=== PATIENT | male | born 1955 | race Caucasian/White ===

== ENCOUNTER 2021-02-24 08:07 | Emergency (ER) | payer MEDICARE, SELFPAY ==
[2021-02-24 08:18] VITALS: BP 154/84; PULSE 83; RESP 13; TEMP 36.8; O2SAT 98; BMI 24.3
[2021-02-24 08:52] VITALS: BP 146/81; PULSE 83; RESP 16; O2SAT 98
--- NOTE | 2021-02-24 09:18 | CTR_ITS ---
PROCEDURE INFORMATION: Exam: CT Head Without Contrast Exam date and time: 02/24/2021 9:18 AM Age: 65 years old Clinical indication: Dizziness; Additional info: Vertigo, nausea, vomiting, TECHNIQUE: Imaging protocol: Computed tomography of the head without contrast. Radiation optimization: All CT scans at this facility use at least one of these dose optimization techniques: automated exposure control; mA and/or kV adjustment per patient size (includes targeted exams where dose is matched to clinical indication); or iterative reconstruction. COMPARISON: No relevant prior studies available. RADIATION DOSE METRICS: Total DLP (mGy-cm): 917.2 FINDINGS: Brain: There is an old infarct in the right cerebellar hemisphere. No intracranial hemorrhage, edema or other acute abnormalities are seen in the brain. There is no mass effect or midline shift. Cerebral ventricles: No ventriculomegaly. Paranasal sinuses: Visualized sinuses are unremarkable. No fluid levels. Mastoid air cells: Visualized mastoid air cells are well aerated. Bones/joints: Unremarkable. No acute fracture. Soft tissues: Unremarkable. CT/CT head wo con* [id number] IMPRESSION: 1. No acute intracranial abnormality. 2. Old right cerebellar infarct.
[2021-02-24 09:44] LABS: Basophils % 0.1 %; Eosinophils % 0.1 %; Hematocrit 51.3 % (42.0-52.0); Hemoglobin 17.3 g/dL (11.7-16.6); Lymphocytes # 1.6 10^3/uL (0.8-4.8); Lymphocytes % 10.6 %; Mean Corpuscular HGB Conc 33.7 g/dL (30.0-36.0); Mean Corpuscular Hemoglobin 29.1 pg (28.0-34.0); Mean Corpuscular Volume 86.4 fl (80-94); Mean Platelet Volume 10.3 fL (7.4-10.4); Monocytes % 6.3 %; Neutrophils # 12.64 10^3/uL (1.8-7.7); Neutrophils % 82.5 %; Nucleated Red Blood Cells % 0 %; Platelet Count 288 10^3/cmm (130-400); Red Blood Count 5.94 10^6/uL (4.1-5.3); Red Cell Distribution Width 12.1 % (12.1-15.1); White Blood Count 15.3 10^3/uL (4.0-10.0)
[2021-02-24] MEDS: sodium chloride 0.9% 1,000 ML 999 ML IV (09:44)
[2021-02-24] MEDS: ondansetron 2 mg/ML SDV 2 mL 4 MG IVP (09:44)
[2021-02-24 09:53] LABS: Alanine Aminotransferase 122 U/L (0-41); Albumin Level 4.1 g/dL (3.5-5.2); Alkaline Phosphatase 38 IU/L (40-130); Anion Gap 19.3 (5-19); Aspartate Amino Transferase 45 U/L (0-40); Blood Urea Nitrogen 17 mg/dL (8-23); C Reactive Protein 0.4 mg/L (0.0-4.9); Calcium 9.6 mg/dL (8.5-10.5); Carbon Dioxide 25 mmol/L (22-29); Chloride 93 mmol/L (98-107); Globulin 3.7 g/dL (1.3-4.6); Glomerular Filtration Rate 84.7 mL/min (90-130); Glucose 108 mg/dL (65-115); Osmolality Calculated 278 mOsm/kg (285-295); Potassium 4.3 mmol/L (3.5-5.1); Sodium 133 mmol/L (136-145); Total Protein 7.8 g/dL (6.6-8.7)
--- NOTE | 2021-02-24 10:00 | ED_ITS ---
HPI - Nausea/Vomiting/Diarrhea General: Chief complaint: Nausea/Vomiting/Diarrhea Stated complaint: N/V Blurry Vision/ being treated for bells palsey Time Seen by Provider: 02/24/21 08:40 Source: patient Mode of arrival: ambulatory Limitations: no limitations History of Present Illness: HPI Narrative: 65-year-old male complaining of nausea and vomiting for the past 2 days. 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 He also has persistent dizziness and nausea on standing, left ear fullness. His left facial droop is improving. He has a history of hypertension, denies history of stroke. All of the symptoms started about 3 weeks ago, initially with a headache, followed by left facial droop, left ear and facial swelling with vesicular rash. Prior to that he denies any dizziness, vertigo, chronic headaches, nausea or vomiting. Associated nausea: Yes Associated symtoms: Reports dizziness, headache(s) and nausea; Denies change in vision, fatigue or malaise Review of Systems General: Reports: 10 or more systems reviewed and unremarkable except in HPI and below Const: Denies: fever(s), chills, body aches, change in appetite, fatigue or malaise Eyes: Reports: dry eyes; Denies: change in vision, blurry vision, photophobia, eye discharge or eye redness ENMT: Reports: ear or mastoid pain and disequilibrium; Denies: odynophagia, oral sores or nasal congestion Resp: Denies: dyspnea or productive cough GI: Reports: nausea and vomiting Musc: Denies: neck pain or back pain Skin/Breast: Reports: rash and erythema (Left ear canal) Neuro: Reports: headache(s), dizziness and vertigo; Denies: numbness in extremities, weakness in extremities, lack of coordination, difficulty walking, confusion or Slurred speech present Endo: Denies: polyuria or polydipsia Dewey/Lymph: Denies: easy bruising or easy bleeding Physical Exam Const: COMMON NORMALS: no acute distress and alert GENERAL APPEARANCE: cooperative, comfortable and well kempt ORIENTATION/CONSCIOUSNESS: Yes oriented to person and Yes oriented to place HENMT: COMMON NORMALS: normocephalic and atraumatic HEAD & SCALP: normocephalic and atraumatic EXTERNAL AUDITORY CANAL: Abnormal EAC present EAC laterality: left (Healing vesicular rash) Details: erythema TYMPANIC MEMBRANE: TM abnormal TM laterality: left Details: dull, loss of landmarks, retracted and scarred Eye: COMMON NORMALS: Equal, round and reactive pupils present, EOMs intact bilaterally, conjunctivae normal and no scleral icterus ALIGNMENT: Yes alignment normal CONJUNCTIVA: Yes conjunctivae normal PUPIL: Yes Equal, round and reactive pupils present EOM: Yes Nystagmus present Nystagmus Noted: positive horizontal and positive with left lateral gaze Neck/C-Spine: GENERAL: Yes normal visual inspection and Yes trachea midline Lymph: LYMPHATIC: no lymphadenopathy noted Resp: COMMON NORMALS: normal respiratory effort and No retractions Cardio: COMMON NORMALS: regular rate, regular rhythm, S1 normal heart sound present and S2 normal heart sound present RATE: regular rate RHYTHM: regular rhythm HEART SOUNDS: S1 normal heart sound present and S2 normal heart sound present GI: COMMON NORMALS: Normal to inspection, nondistended, normoactive bowel sounds present, Soft to palpation and non-tender INSPECTION: Yes normal to inspection and No abdominal distension PALPATION: Yes Soft to palpation Extremity: COMMON NORMALS: normal to inspection, full ROM and capillary refill normal Neuro: SENSORIUM/ORIENTATION: Yes alert, Yes oriented to person and Yes oriented to place CRANIAL NERVES: Yes CN normal except as noted and Yes CN VII (facial) Laterality: left (Mild) CN VII left: facial droop, flattened naso- labial fold, unable to raise eyebrow(s) and asymmetrical smile SPEECH: speech normal GAIT: Yes Normal gait present Psych: APPEARANCE: Yes well kempt Course Vital Signs: Vital signs: Vital Signs Temperature 98.2 F 02/24/21 08:18 Pulse Rate 88 02/24/21 12:06 Respiratory Rate 16 02/24/21 10:54 Blood Pressure 156/94 02/24/21 10:54 Pulse Oximetry 99 02/24/21 12:06 MDM - Nausea/Vomiting/Diarrhea MDM Narrative: Medical decision making narrative: 65-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 Facial droop is improving, but he still having trouble with vertigo. Treated with IV fluids, Zofran; able to tolerate p.o. challenge. CT head did not show any acute abnormality. There is evidence of an old right cerebellar stroke, which the patient was not aware of. Emphasized the importance of follow-up with his PCP for further work-up for this. Recommended that he take a Zofran at least 30 minutes prior to the Valtrex, preferably with a full glass of water and a small meal. If he still unable to tolerate it, he should discontinue. He does have mild elevation in LFTs which could be due to the Valtrex or dehydration, and these will need to be rechecked Lab Data: Labs: Lab Results 02/24/21 02/24/21 09:24 09:24 WBC 15.3 10^3/uL H 10 ^3/uL (4.0-10.0) RBC 5.94 10^6/uL H 10 ^6/uL (4.1-5.3) Hgb 17.3 g/dL H g/dL (11.7-16.6) Hct 51.3 % % (42.0-52.0) MCV 86.4 fl fl (80-94) MCH 29.1 pg pg (28.0-34.0) MCHC 33.7 g/dL g/dL (30.0-36.0) RDW 12.1 % % (12.1-15.1) Plt Count 288 10^3/cmm 10^3 /cmm (130-400) MPV 10.3 fL fL (7.4-10.4) Neut % (Auto) 82.5 % % Lymph % (Auto) 10.6 % % [place] % (Auto) 6.3 % % Eos % (Auto) 0.1 % % Baso % (Auto) 0.1 % % Neut # (Auto) 12.64 10^3/uL H 1 0^3/uL (1.8-7.7) Lymph # (Auto) 1.6 10^3/uL 10^3/ uL (0.8-4.8) [place] # (Auto) 1.0 10^3/uL H 10^ 3/uL (0.2-0.9) Eos # (Auto) 0.0 10^3/uL 10^3/ uL (0.0-0.8) Baso # (Auto) 0.0 10^3/uL 10^3/ uL (0.0-0.1) Nucleated RBC % (a uto) 0 % % Nucleated RBCs # 0.0 /100WBC /100W BC Sodium 133 mmol/L L mmol /L (136-145) Potassium 4.3 mmol/L mmol/L (3.5-5.1) Chloride 93 mmol/L L mmol/ L (98-107) Carbon Dioxide 25 mmol/L mmol/L (22-29) Anion Gap 19.3 H (5-19) BUN 17 mg/dL mg/dL (8-23) Creatinine 0.9 mg/dL mg/dL (0.7-1.2) GFR Calculation 84.7 mL/min L mL/ min (90-130) Glucose 108 mg/dL mg/dL (65-115) Calculated Osmolal ity 278 mOsm/kg L mOs m/kg (285-295) Calcium 9.6 mg/dL mg/dL (8.5-10.5) Total Bilirubin 2.0 mg/dL H mg/dL (0.15-1.2) AST 45 U/L H U/L (0-40) ALT 122 U/L H U/L (0-41) Alkaline Phosphata se 38 IU/L L IU/L (40-130) C-Reactive Protein 0.4 mg/L mg/L (0.0-4.9) Total Protein 7.8 g/dL g/dL (6.6-8.7) Albumin 4.1 g/dL g/dL (3.5-5.2) Globulin 3.7 g/dL g/dL (1.3-4.6) Discharge Plan Discharge Patient Disposition: Home Clinical Impression: Drug-induced nausea and vomiting, Dehydration, Sheryl Hawkins syndrome (geniculate herpes zoster), Vertigo Condition: Stable Prescriptions: New meclizine 25 mg tablet 25 mg PO TID PRN (Reason: dizziness, nausea) Qty: 30 RF: 0 ondansetron 8 mg tablet,disintegrating 8 mg PO Q12H PRN (Reason: nausea and vomiting) 5 Days Qty: 30 RF: 0 Discharge Orders: Discharge ED (Routine); Ordered 02/24/21 Ordered By: Trish Cordero Discharge Diet: Advance as tolerated Discharge Activity: Resume usual activity Patient Instructions: Cifuentes Palsy (ED) Activity Restrictions/Additional Instructions: Try taking the nausea medicine at least 30 minutes before taking your other medication. Make sure to drink a full glass of water with the valacyclovir. If you still have nausea and vomiting, discontinue the valacyclovir. Call to schedule follow-up appoint with your primary care doctor in the next 3 days for recheck. Return immediately to the ER if develop worsening weakness or dizziness,, vision changes, severe headache, fever, or any other concerning symptoms. Coding Level of Care Code ED Online Trader for Deborah Berrios Exam Comprehensive
[2021-02-24 10:54] VITALS: BP 156/94; PULSE 80; RESP 16; O2SAT 99
[2021-02-24 12:06] VITALS: PULSE 88; O2SAT 99
== END 2021-02-24 12:07 | disposition home or self-care (01) ==
PROVIDERS: Emergency Provider Family Medicine
DX: R11.2 Nausea with vomiting, unspecified (principal); T37.5X5A Adverse effect of antiviral drugs, initial encounter; B02.21 Postherpetic geniculate ganglionitis; R42 Dizziness and giddiness
CPT/HCPCS: 70450; 80053; 85025; 86140; 96361; 96374; 99284; J2405; J7030

== ENCOUNTER → 2023-05-14 11:18 | Outpatient (BNVA) | payer MEDICARE, SELFPAY | PROVIDERS: PCP Family Medicine; Visit Provider Podiatrist Foot & Ankle Surgery | DX: S82.51XA Displaced fracture of medial malleolus of right tibia, initial encounter for closed fracture; W20.8XXA Other cause of strike by thrown, projected or falling object, initial encounter | CPT/HCPCS: 99204 ==

== ENCOUNTER 2023-05-20 06:37 | Day surgery (SDC) | payer MEDICARE, SELFPAY ==
[2023-05-20] VITALS (10 sets, daily range): BP systolic 103–157; BP diastolic 45–78; PULSE 53–69; RESP 9–20; TEMP 36.1–36.5; O2SAT 94–97; BMI 24.3
[2023-05-20] MEDS: gabapentin 300 mg Capsule PO (07:02)
[2023-05-20] MEDS: acetaminophen 1,000 MG/100 ML PIGGYBACK 400 MG IV (07:03)
[2023-05-20] MEDS: sodium chloride 0.9% 1,000 ML 30 ML IV (07:24)
--- NOTE | 2023-05-20 07:35 | ANES.PREANE2 ---
Pre-Anesthetic Assessment Height/Weight: Height 1.78 m Weight 77.111 kg Temp Pulse Resp BP Pulse Ox O2 Del Method 97.7 F 69 18 157/78 95 Room Air 05/20/23 06:56 05/20/23 06:56 05/20/23 06:56 05/20/23 06:56 05/20/23 06:56 05/20/23 07:06 Preop Diagnosis: Right medial malleolar fracture Operation Date: 05/20/23 08:20 Proposed Procedures p ORIF Ankle ORIF Distal Tibia(Right) - Sriram Pate DPM Familial anesthetic complications: None Was Beta Samson taken within 24 hours: N/A Was Clonidine taken within 24 hours: N/A Last intake: Intake Last Liquid Date 05/19/23 Last Liquid Time 17:00 Last Solid Date 05/19/23 Last Solid Time 19:00 Social No alcohol and No tobacco Exam alert, oriented x 3, clear to auscultation bilaterally and regular rate & rhythm Airway Mallampati: Class II Dentition: other (missing) CV/HEM Hypertension Anesthetic Plan ASA status: 2 Anesthesia: General and Regional (specify below) Risk of > 500 ml blood loss (7ml/kg in children): No Medications/Allergies Home Medications Medication Instructions Recorded Confirmed Last Taken Type amlodipine 5 mg tablet 5 mg PO DAILY 05/10/23 05/19/23 05/19/23 History losartan 50 mg tablet 50 mg PO DAILY 05/10/23 05/19/23 05/19/23 History Multi Vitamin 1 tab PO DAILY 05/19/23 05/19/23 05/19/23 History aspirin 81 mg chewable tablet 81 mg PO DAILY 05/19/23 05/19/23 05/19/23 History omega 5-osy-nrj-fish oil 1,000 mg 1 cap PO DAILY 05/19/23 05/19/23 05/19/23 History (120 mg-180 mg) capsule (Fish Oil) Allergies Allergy/AdvReac Type Severity Reaction Status Date / Time No Known Allergies Allergy Verified 05/19/23 14:56 Current Medications Generic Name Dose Route Start Last Admin Trade Name Freq PRN Reason Stop Dose Admin Sodium Chloride 1,000 mls @ 30 mls/hr 05/20/23 07:00 05/20/23 07:24 Sodium Chloride 0.9% IV 05/21/23 06:59 30 mls/hr .Q24H CHELI Administration Data Anesthesia Cardiac Studies: No Data to Display
--- NOTE | 2023-05-20 07:36 | ANES.PROC ---
Anesthesia Procedures Procedure/Date: 05/20/23 Nerve Block ^: Nerve Block 1: Main Anesthesia: general anesthesia Time Out Performed: Yes Consent: requested by attending/covering physician, from patient, from other, risks and benefits reviewed and patient agrees to proceed Nerve block location: popliteal (L) Anesthesia monitors applied: pulse oximetry, EKG, BP cuff and oxygen Nerve block position: supine Anesthetic Used: ropivicaine 0.5% (30 ml) and with decadron (4 mg) Ultrasound used to: recognize landmarks Nerve Stimulator Used?: No Interscalene/Femoral BLK: 4 stimuplex 21 g needle used for position and inplane approach, visualize local anesthetic spread and no vascular puncture identified Injection: neg aspiration of heme Patient Tolerated Procedure: well Complications: none
--- NOTE | 2023-05-20 08:23 | P.HPUD_ITS ---
Surgery/Procedure H&P Update DATE OF PROCEDURE: May 20, 2023 DATE H&P PERFORMED: 05/14/23 H&P UPDATE INFORMATION: I have reviewed H&P completed within last 30 days, I have examined patient prior to procedure, No changes to prior documentation and H&P is in [facility] [place] EMR on date indicated PREOP DIAGNOSIS: Right medial malleolar fracture PLANNED PROCEDURE: Operation Date: 05/20/23 08:20 Proposed Procedures p ORIF Ankle ORIF Distal Tibia(Right) - Sriram Pate DPM
[2023-05-20] MEDS: ceFAZolin 2,000 MG in sodium chloride 0.9% (plus) 50 ML 100 MG IV (08:39)
--- NOTE | 2023-05-20 09:05 | XR_ITS ---
WS: [id number] Exam: XR ankle RT 2V [id number] Date/Time of Exam: 05/20/2023 9:05 AM Reason For Exam: OR PIC, ORIF ANKLE Intraoperative AP and lateral C-arm images of the RIGHT ankle are submitted. Images depict internal fixation with 2 screws involving a medial malleolar fracture.
[2023-05-20] MEDS: BUPivacaine 0.5% INJ 10 mL INJECTION (09:22)
--- NOTE | 2023-05-20 09:31 | W.PM.BPON ---
Date of procedure: 05/20/2023 Surgeon name: Memo BarrigaPPaige Manager Architecture(s) name(s): Kristen Procedure(s) performed: Open reduction internal fixation right medial malleolus fracture Description of findings: Right medial malleolus fracture Estimated blood loss: 5 cc Tourniquet time: 26 minutes Specimen(s) removed: None Post-operative diagnosis: Medial malleolus fracture right ankle
--- NOTE | 2023-05-20 09:32 | P.OP_ITS ---
Operative Report Date of procedure: May 20, 2023 Pre-op diagnosis: Right medial malleolus fracture Post-op diagnosis: Same Procedure done: Open reduction internal fixation right medial malleolus fracture CPT 43988 Implants: 4.0 headless compression screws x 2 [employer] Surgeon: Sriram Ptae DPM Bore Mill Operator For [employer]: Kristen Estimated blood loss: 5 cc 26 minutes Complications: None Procedure: Patient is a 68-year-old male that has a history of right medial malleolus fracture. The extent of displacement necessitates open reduction internal fixation. A lengthy discussion regarding the procedure, including risks and complications has been had with the patient and is noted in the recent clinic note. Written and verbal consent have been obtained. All patient questions have been answered to the patient?s satisfaction. No written or verbal guarantees have been given or implied. The patient has been NPO since midnight. The history has been reviewed and the history and physical is current. The signed consent was confirmed and placed in the patient chart. Patient imaging has been reviewed and is consistent with the diagnosis. Under mild sedation, the patient was brought into the operating room and placed on the table in the supine position. IV antibiotics were given by the anesthesia team as preoperative surgical prophylaxis. General sedation was then performed by the anesthesiateam. A popliteal block was performed by the anesthesia department. A pneumatic tourniquet was then placed about the right ankle. The operative extremity was then prepped and draped in the usual fashion. The extremity was then elevated and exsanguinated before the tourniquet was inflated to 325 mmHg. After inflation, the following procedure was then performed. Attention was directed to the medial malleolus where a 6 cm incision was made using a #15 blade. Dissection was carried down through subcutaneous the superficial fascia to the level of the medial malleolus. Fracture site was visualized and hematoma was removed from the site using a combination of rongeur and dental pick. After site was cleared from hematoma anatomic reduction was achieved using [id number] reduction clamp. 2 guidewires were driven across fracture site in preparation for the 4.0 cannulated screws. Next the drill was used to drill over the wires for the headless compression screws. Good position of the wires was noted intraoperatively as well as upon seen on imaging. 2 fully threaded 4.0 headless compression screws from [employer] were then driven over the wires across the fracture site. Anatomic position of the fracture site was noted. The site was irrigated with copious amounts of sterile saline before attention was directed to closure. Deep tissue was closed with 2-0 Vicryl followed by subcuticular closure with 3-0 Vicryl and skin closure with 3-0 nylon in horizontal mattress fashion. The tourniquet was let down good hyperemic response was noted to all digits of the right foot. Incision site was dressed with Xeroform, 4 x 4 gauze, Kerlix, Esequiel bandage. Patient was placed in a cam boot. The patient tolerated the procedure and anesthesia well and without complication. The patient was transported from the operating room to the recovery room with vital signs stable and vascular status intact to all digits of the right foot. The patient was given both written and verbal instructions to remain nonweightbearing to the operative extremity, to keep dressings/splint clean, dry and intact and to take pain medication as directed. The patient will follow-up in the outpatient setting at their scheduled appointment. The patient was discharged with my personal number and was instructed to call if any questions or issues should arise. They were discharged home once anesthesia criteria was met.
--- NOTE | 2023-05-20 10:45 | ANE.PACU2 ---
Inpatient post-anesthesia follow up: Airway intact: Yes Vital signs: Temperature 97.0 F Pulse Rate 62 Respiratory Rate 18 Blood Pressure 135/77 Pulse Oximetry 94 Oxygen Delivery Me thod Room Air Oxygen Flow Rate Fraction of Inspir ed Oxygen Hydration adequate: Yes Nausea and vomiting: No Pain level: 1 Mental status: Baseline
== END 2023-05-20 10:40 | disposition home or self-care (01) ==
PROVIDERS: PCP Family Medicine; Visit Provider Podiatrist Foot & Ankle Surgery
PROC: (CPT 27766; principal; 2023-05-20 08:10)
DX: S82.51XA Displaced fracture of medial malleolus of right tibia, initial encounter for closed fracture (principal); S97.81XA Crushing injury of right foot, initial encounter; I10 Essential (primary) hypertension; Z79.82 Long term (current) use of aspirin
CPT/HCPCS: 27766; 73600; 76000; C1713; J0131; J0690; J1100; J2405; J2704; J2795; J3010; J3490; J7030

== ENCOUNTER → 2023-06-03 13:38 | Outpatient (BNVA) | payer MEDICARE, SELFPAY | PROVIDERS: PCP Family Medicine; Visit Provider Podiatrist Foot & Ankle Surgery | DX: S82.51XD Displaced fracture of medial malleolus of right tibia, subsequent encounter for closed fracture with routine healing (principal); X58.XXXD Exposure to other specified factors, subsequent encounter | CPT/HCPCS: 73610; 99024 ==

== ENCOUNTER → 2023-06-18 08:55 | Outpatient (BNVA) | payer MEDICARE, SELFPAY | PROVIDERS: PCP Family Medicine; Visit Provider Podiatrist Foot & Ankle Surgery | DX: S82.53XD Displaced fracture of medial malleolus of unspecified tibia, subsequent encounter for closed fracture with routine healing; X58.XXXD Exposure to other specified factors, subsequent encounter | CPT/HCPCS: 73610; 99024 ==

== ENCOUNTER → 2023-07-02 08:50 | Outpatient (BNVA) | payer MEDICARE, SELFPAY | PROVIDERS: PCP Family Medicine; Visit Provider Podiatrist Foot & Ankle Surgery | DX: S82.51XD Displaced fracture of medial malleolus of right tibia, subsequent encounter for closed fracture with routine healing; X58.XXXD Exposure to other specified factors, subsequent encounter; Z46.89 Encounter for fitting and adjustment of other specified devices; S82.53XD Displaced fracture of medial malleolus of unspecified tibia, subsequent encounter for closed fracture with routine healing | CPT/HCPCS: 73610; 97760; 99024; L1902 ==

== ENCOUNTER 2023-07-02 10:29 | Outpatient (CLI) | payer MEDICARE, SELFPAY | END 2023-07-02 10:30 | disposition home or self-care (01) | LOC: SPT 10:30 | PROVIDERS: PCP Family Medicine; Visit Provider Podiatrist Foot & Ankle Surgery | DX: Z46.89 Encounter for fitting and adjustment of other specified devices (principal); S82.53XD Displaced fracture of medial malleolus of unspecified tibia, subsequent encounter for closed fracture with routine healing; X58.XXXD Exposure to other specified factors, subsequent encounter | CPT/HCPCS: 97760; 99024; L1902 ==

== ENCOUNTER → 2023-09-25 11:10 | Outpatient (BNVA) | payer MEDICARE, SELFPAY | PROVIDERS: PCP Family Medicine; Visit Provider Podiatrist Foot & Ankle Surgery | DX: M79.672 Pain in left foot (principal); M72.2 Plantar fascial fibromatosis | CPT/HCPCS: 73630; 99213 ==

== ENCOUNTER → 2023-10-15 11:26 | Outpatient (BNVA) | payer MEDICARE, SELFPAY | PROVIDERS: PCP Family Medicine; Visit Provider Podiatrist Foot & Ankle Surgery | DX: M72.2 Plantar fascial fibromatosis (principal) | CPT/HCPCS: 99213 ==

== ENCOUNTER → 2024-03-21 08:54 | Outpatient (BNVA) | payer MEDICARE, SELFPAY | PROVIDERS: PCP Family Medicine; Visit Provider Nurse Practitioner Family | DX: L57.8 Other skin changes due to chronic exposure to nonionizing radiation (principal); D22.61 Melanocytic nevi of right upper limb, including shoulder; L81.4 Other melanin hyperpigmentation; L82.1 Other seborrheic keratosis; D48.5 Neoplasm of uncertain behavior of skin | CPT/HCPCS: 11102; 17000; 99213 ==

== ENCOUNTER → 2024-04-04 15:10 | Outpatient (BNVA) | payer MEDICARE, SELFPAY | PROVIDERS: PCP Family Medicine; Visit Provider Dermatology | DX: L82.1 Other seborrheic keratosis (principal); D22.5 Melanocytic nevi of trunk; L81.4 Other melanin hyperpigmentation; D03.59 Melanoma in situ of other part of trunk; D48.5 Neoplasm of uncertain behavior of skin | CPT/HCPCS: 11102; 11603; 13101; 99213 ==

== ENCOUNTER → 2024-07-25 09:19 | Outpatient (BNVA) | payer MEDICARE, SELFPAY | PROVIDERS: PCP Family Medicine; Visit Provider Nurse Practitioner Family | DX: H10.32 Unspecified acute conjunctivitis, left eye (principal); L57.8 Other skin changes due to chronic exposure to nonionizing radiation; D22.61 Melanocytic nevi of right upper limb, including shoulder; L81.4 Other melanin hyperpigmentation; L82.1 Other seborrheic keratosis; D22.5 Melanocytic nevi of trunk; Z08 Encounter for follow-up examination after completed treatment for malignant neoplasm; Z86.006 Personal history of melanoma in-situ; L57.0 Actinic keratosis | CPT/HCPCS: 17000; 99214 ==

== ENCOUNTER → 2024-11-24 09:10 | Outpatient (BNVA) | payer MEDICARE, SELFPAY | PROVIDERS: PCP Family Medicine; Visit Provider Nurse Practitioner Family | DX: L57.8 Other skin changes due to chronic exposure to nonionizing radiation (principal); D22.61 Melanocytic nevi of right upper limb, including shoulder; Z08 Encounter for follow-up examination after completed treatment for malignant neoplasm; L81.4 Other melanin hyperpigmentation; Z86.006 Personal history of melanoma in-situ; L57.0 Actinic keratosis | CPT/HCPCS: 17000; 99213 ==